=== PATIENT | female | born 1935 | race Two or more races ===

== ENCOUNTER 2021-05-16 12:25 | Inpatient (IN) | payer MEDICARE ==
[~2021-05-16] VITALS: Ht 167.6 cm; Wt 52.6 kg
--- NOTE | 2021-05-16 12:30 | NUR ---
PATIENT [id number] FOR AMS PER FACILITY. AAOX1. RECENT FALL PER EMS. BG 114. PATIENT AWAKE AND ABLE TO RESPOND AT TIMES. CONTINUE TO MONITOR AND AWAITING MD MATTHEWS
[2021-05-16] MEDS ORDERED: IV NS 0.9% 1,000 ML BAG IV ONE (13:00)
--- NOTE | 2021-05-16 13:13 | NUR ---
PATIENT OUT TO RADIOLOGY
[2021-05-16 13:16] LABS: BASOPHILS # (AUTO) 0.1 K/uL (0.0-0.2); BASOPHILS % (AUTO) 1.3 % (0.0-2.0); EOSINOPHILS % (AUTO) 0.4 % (0.0-6.0); HEMATOCRIT 38 % (33-45); HEMOGLOBIN 12.8 g/dL (11.5-14.8); LYMPHOCYTES # (AUTO) 1.7 K/uL (0.8-4.8); LYMPHOCYTES % (AUTO) 16.2 % (20.0-44.0); MEAN CORPUSCULAR HGB CONC 34 g/dl (31.0-36.0); MEAN CORPUSCULAR VOLUME 98 fL (82-100); MONOCYTES # (AUTO) 0.9 K/uL (0.1-1.30); MONOCYTES % (AUTO) 8.5 % (2.0-12.0); NEUTROPHILS # (AUTO) 7.5 K/uL (1.8-8.9); NEUTROPHILS % (AUTO) 73.6 % (43.0-81.0); PLATELET COUNT (AUTO) 498 K/uL (150-450); RED BLOOD CELL COUNT(AUTO) 3.89 MIL/uL (4.0-5.2); WHITE BLOOD COUNT (AUTO) 10.2 K/uL (4.3-11.0)
[2021-05-16 13:22] LABS: CALCIUM, SERUM 9.4 mg/dL (8.5-10.1); CARBON DIOXIDE 25 mmol/L (21-32); CHLORIDE 105 mmol/L (98-107); CREATININE 0.5 mg/dL (0.6-1.3); GLUCOSE 93 mg/dL (74-106); POTASSIUM 4.4 mmol/L (3.5-5.1); SODIUM SERUM 142 mmol/L (136-145); UREA NITROGEN, BLOOD 19 mg/dL (7-18)
[2021-05-16 13:28] LABS: ALANINE AMINOTRANSFERASE 18 U/L (12-78); ALBUMIN 3.5 g/dL (3.4-5.0); ALKALINE PHOSPHATASE 220 U/L (46-116); ASPARTATE AMINOTRANSFERASE 53 U/L (15-37); BILIRUBIN,DIRECT 0.1 mg/dL (0.0-0.2); BILIRUBIN,TOTAL 1.5 mg/dL (0.2-1.0); TOTAL PROTEIN, SERUM 7.8 g/dL (6.4-8.2)
--- NOTE | 2021-05-16 13:35 | NUR ---
CALLED NURSING SUP FOR M/S BED.
--- NOTE | 2021-05-16 14:07 | NUR ---
DAUGHTER CALLED, AND REQUEST TO HAVE STAFF CALL HER BACK WHEN PATIENT IS SITUATED. WILL ENDORSE TO MS INMAN
[2021-05-16 14:18] LABS: BILIRUBIN,URINE MODERATE (NEGATIVE); COLOR,URINE YELLOW (YELLOW); LEUKOCYTE ESTERASE ,URINE Negative (NEGATIVE); NITRITE, URINE Negative (NEGATIVE); PROTEIN,URINE 100 mg/dl (NEGATIVE); UGLUCOSE Negative (NEGATIVE)
--- NOTE | 2021-05-16 14:19 | NUR ---
COVID SWABS DONE
[2021-05-16 14:20] LABS: BACTERIA,URINE Few /HPF (None Seen); SQUAMOUS EPITHELIAL CELL,UR Few /HPF (None Seen); WBC,URINE 0-2 /HPF (0-3)
[2021-05-16 14:22] LABS: THYROID STIMULATING HORMONE 1.461 uIU/mL (0.358-3.74)
--- NOTE | 2021-05-16 15:20 | NUR ---
ROOM 117-2
--- NOTE | 2021-05-16 15:28 | NUR ---
REPORT GIVEN TO NURSE QUEEN
[2021-05-16] MEDS ORDERED: ONDANSETRON HCL/PF 4 MG/2 ML VIAL IVP PRN (15:30)
[2021-05-16] MEDS ORDERED: MAG HYDROX/AL HYDROX/SIMETH 30 ML UDC PO PRN (15:30)
[2021-05-16] MEDS ORDERED: TEMAZEPAM 15 MG CAPSULE PO PRN (15:30)
[2021-05-16] MEDS ORDERED: ACETAMINOPHEN 325 MG TABLET PO PRN (15:30)
[2021-05-16] MEDS ORDERED: Z GUARD REMEDY 2 OZ OINT TP PRN (15:30)
--- NOTE | 2021-05-16 16:15 | NUR ---
Patient transferred to [facility] in stable condition.
[2021-05-16 16:26] LABS: SERUM AMMONIA 1321 umol/L (11-32)
[2021-05-16 16:40] VITALS: BP 154/72
[2021-05-16 17:40] VITALS: BP 154/72
--- NOTE | 2021-05-16 17:41 | NUR ---
RECEIVED AWAKE NO ACUTE DISTRESS,FALL RISK PRECAUTION OBSERVED ,WILL ENDORSE TO NIGHT RN FOR COTINUITY OF CARE/ADMISSION.
--- NOTE | 2021-05-16 18:45 | NUR ---
RN CLOSING NOTES Pt is resting comfortably in bed with no s/sx of pain or distress. Pt was sleeping during dinner. Will endorse to next shift. Pt has a R FA 20gauge. Pt voided and had two bms on shift. Pt is a fall risk and safety measures in place with bed in lowest locked position, side rails up x3, bed alarm on and call light within reach.
[2021-05-16 20:00] VITALS: BP 156/80
--- NOTE | 2021-05-16 20:06 | NUR ---
RN NOTE PATIENT RESTING IN BED, ALERT AND ORIENTED X1. ON ROOM AIR, NO SHORTNESS OF BREATH NOTED. NO SIGNS OF DISCOMFORT. IV ACCESS ON RIGHT FOREARM #20, PATENT AND INTACT. FLUSHED WITH NS. BED LOCKED AND IN LOWEST POSITION. CALL LIGHT WITHIN REACH. ALL NEEDS ANTICIPATED.
[2021-05-17 04:00] VITALS: BP 122/75
[2021-05-17 06:36] LABS: BASOPHILS # (AUTO) 0.1 K/uL (0.0-0.2); BASOPHILS % (AUTO) 0.9 % (0.0-2.0); EOSINOPHILS % (AUTO) 0.9 % (0.0-6.0); HEMATOCRIT 37 % (33-45); HEMOGLOBIN 12.6 g/dL (11.5-14.8); LYMPHOCYTES # (AUTO) 1.4 K/uL (0.8-4.8); LYMPHOCYTES % (AUTO) 14.6 % (20.0-44.0); MEAN CORPUSCULAR HGB CONC 35 g/dl (31.0-36.0); MEAN CORPUSCULAR VOLUME 97 fL (82-100); MONOCYTES # (AUTO) 0.7 K/uL (0.1-1.30); MONOCYTES % (AUTO) 7.7 % (2.0-12.0); NEUTROPHILS # (AUTO) 7.3 K/uL (1.8-8.9); NEUTROPHILS % (AUTO) 75.9 % (43.0-81.0); PLATELET COUNT (AUTO) 471 K/uL (150-450); RED BLOOD CELL COUNT(AUTO) 3.76 MIL/uL (4.0-5.2); WHITE BLOOD COUNT (AUTO) 9.6 K/uL (4.3-11.0)
[2021-05-17 06:57] LABS: CHOLESTEROL 197 mg/dL (<200); HDL CHOLESTEROL 60 mg/dL (40-60); LDL 126 mg/dL (0-99); THYROID STIMULATING HORMONE 0.917 uIU/mL (0.358-3.74); TRIGLYCERIDES 55 mg/dL (30-150)
--- NOTE | 2021-05-17 07:20 | NUR ---
RN NOTES Received patient in bed resting. Easily arousable. Patient alert and oriented x1. Breathing even and unlabored. No shortness of breath noted upon receiving. Currently on room air. Patient noted with right forearm IV catheter 20 gauge. Will continue to monitor.
--- NOTE | 2021-05-17 07:24 | NUR ---
RN NOTE PATIENT ALERT AND ORIENTED X1. ON ROOM AIR O2 SAT 97%. NO SIGNS OF DISCOMFORT. IV ACCESS ON RIGHT FOREARM #20, PATENT AND INTACT. FLUSHED WITH NS. TURNED AND REPOSITIONED Q2H. KEPT CLEAN AND DRY. BED LOCKED AND IN LOWEST POSITION. CALL LIGHT WITHIN REACH. ENDORSED TO AM SHIFT.
[2021-05-17 07:34] LABS: CARBON DIOXIDE 28 mmol/L (21-32); CHLORIDE 106 mmol/L (98-107); CREATININE 0.6 mg/dL (0.6-1.3); GLUCOSE 78 mg/dL (74-106); POTASSIUM 3.4 mmol/L (3.5-5.1); SODIUM SERUM 144 mmol/L (136-145)
[2021-05-17 07:35] LABS: CALCIUM, SERUM 9.2 mg/dL (8.5-10.1); MAGNESIUM 2.2 mg/dL (1.8-2.4); PHOSPHORUS 3.1 mg/dL (2.5-4.9); UREA NITROGEN, BLOOD 17 mg/dL (7-18)
[2021-05-17 08:00] VITALS: BP 144/79
[2021-05-17] MEDS: PANTOPRAZOLE 40 MG TABLET.DR PO SCH (08:46)
[2021-05-17] MEDS ORDERED: ENAL10TA39 PO (08:57)
[2021-05-17] MEDS ORDERED: ANAS1TAB50 PO (08:57)
[2021-05-17] MEDS ORDERED: TRAM50TA2 PO (08:57)
[2021-05-17] MEDS ORDERED: DOCU-141 PO (08:57)
[2021-05-17] MEDS ORDERED: AMLO10TA4 PO (08:57)
[2021-05-17] MEDS ORDERED: CHOL200010 PO (08:57)
[2021-05-17] MEDS ORDERED: LISI10TA29 PO (08:57)
[2021-05-17] MEDS ORDERED: POTASSIUM CHLORIDE 20 MEQ TAB.PRT.SR PO ONE (10:30)
[2021-05-17] MEDS ORDERED: POTASSIUM CHLORIDE 20 MEQ POWDER PACKET PO ONE (11:00)
--- NOTE | 2021-05-17 11:00 | NUR ---
RN NOTES INSERTED PATIENT WITH NASOGASTRIC TUBE. PATENT. VERIFIED PLACEMENT WITH TWO LICENSED REGISTERED NURSES. NO ASPIRATION AND VOMITING NOTED. WILL CONTINUE TO MONITOR.
[2021-05-17] MEDS ORDERED: LACTULOSE 10 G/15 ML UDC (PYXIS) NG SCH (13:00)
[2021-05-17 16:00] VITALS: BP 160/91
[2021-05-17] MEDS: DOCUSATE SODIUM 100 MG CAPSULE PO SCH (16:47)
--- NOTE | 2021-05-17 18:00 | NUR ---
RN NOTES NO SIGNIFICANT CHANGES DURING SHIFT. PATIENT ALERT AND ORIENTED X1. CURRENTLY ON ROOM AIR. PATIENT WITH RESTRAINTS SECONDARY TO PULLING OUT NG TUBE AND TRYING TO GET OUT OF BED. PATIENT WITH NASOGASTRIC TUBE, PATENT. REPOSITIONED EVERY 2 HOURS AND NEEDED. WILL ENDORSE TO NEXT SHIFT FOR CONTINUITY OF CARE.
--- NOTE | 2021-05-17 19:30 | NUR ---
RN NOTES Received patient in bed resting, alert and oriented x1. Responsive to verbal and tactile stimuli. On RA, Breathing even and unlabored. No SOB noted. Right forearm IV 20 gauge intact no s/s of bleeding no swelling noted. RT Nare NG tube intact. All safety measures in place, call light within reach. Will cont to monitor for tristan.
[2021-05-17 20:00] VITALS: BP 158/98
[2021-05-18 04:00] VITALS: BP 144/71
--- NOTE | 2021-05-18 06:58 | NUR ---
RN notes No significant changes noted during shift. On RA. Patient continues on bilateral soft wrist restrains secondary to pulling NGT and getting out of bed. Release restrains [id number] for skin assessment no skin breakdown noted. All safety measures in place, call light within reach. Will endorse to AM nurse for ROBERT.
[2021-05-18 06:59] LABS: BASOPHILS # (AUTO) 0.1 K/uL (0.0-0.2); BASOPHILS % (AUTO) 0.6 % (0.0-2.0); EOSINOPHILS % (AUTO) 0.3 % (0.0-6.0); HEMATOCRIT 37 % (33-45); HEMOGLOBIN 12.7 g/dL (11.5-14.8); LYMPHOCYTES # (AUTO) 1.2 K/uL (0.8-4.8); LYMPHOCYTES % (AUTO) 11.4 % (20.0-44.0); MEAN CORPUSCULAR HGB CONC 35 g/dl (31.0-36.0); MEAN CORPUSCULAR VOLUME 97 fL (82-100); MONOCYTES # (AUTO) 0.9 K/uL (0.1-1.30); NEUTROPHILS # (AUTO) 8.3 K/uL (1.8-8.9); NEUTROPHILS % (AUTO) 78.7 % (43.0-81.0); PLATELET COUNT (AUTO) 459 K/uL (150-450); RED BLOOD CELL COUNT(AUTO) 3.75 MIL/uL (4.0-5.2); WHITE BLOOD COUNT (AUTO) 10.5 K/uL (4.3-11.0)
[2021-05-18 07:29] LABS: CALCIUM, SERUM 8.7 mg/dL (8.5-10.1); CARBON DIOXIDE 27 mmol/L (21-32); CHLORIDE 106 mmol/L (98-107); CREATININE 0.6 mg/dL (0.6-1.3); GLUCOSE 91 mg/dL (74-106); POTASSIUM 2.9 mmol/L (3.5-5.1); SODIUM SERUM 143 mmol/L (136-145); UREA NITROGEN, BLOOD 19 mg/dL (7-18)
--- NOTE | 2021-05-18 07:30 | NUR ---
RN OPENING NOTES Patient is alert and responsive. Patient noted with her NGT out during shift report. bilateral wrist restraints noted. No c/o pain or discomfort. Right wrist iv line dislodged and not patent. HOB kept elevated. Will continue to monitor. Call light with in reach.
[2021-05-18 08:00] VITALS: BP 134/77
[2021-05-18 08:01] LABS: SERUM AMMONIA < 10 umol/L (11-32)
[2021-05-18] MEDS: CHOLECALCIFEROL 1,000 UNIT TABLET (VIT D3) PO SCH (08:36)
[2021-05-18] MEDS: PANTOPRAZOLE 40 MG TABLET.DR PO SCH (08:36)
[2021-05-18] MEDS: LISINOPRIL (10MG) 10 MG TABLET PO SCH (08:36)
[2021-05-18] MEDS: ENALAPRIL MALEATE (10 MG) 10 MG TABLET PO SCH (08:36)
[2021-05-18] MEDS: AMLODIPINE BESYLATE 10 MG TABLET PO SCH (08:36)
[2021-05-18] MEDS: DOCUSATE SODIUM 100 MG CAPSULE PO SCH ×2 (08:37→17:00)
[2021-05-18] MEDS: ANASTROZOLE 1 MG TABLET PO SCH (08:37)
--- NOTE | 2021-05-18 09:00 | NUR ---
K+ level of 2.9 informed MD Abdiel and awaiting response. Patient is asymptomatic.
--- NOTE | 2021-05-18 09:50 | NUR ---
Received verbal order from OB GYN PHYSICIAN ASSISTANT Abdiel for Klor con 40 meq q4h x 3 doses for total of 120 meq and PT EVAL, SWALLOW EVAL AND CALORIE COUNT.
[2021-05-18] MEDS ORDERED: POTASSIUM CHLORIDE 20 MEQ TAB.PRT.SR PO ONE (10:00)
[2021-05-18] MEDS: POTASSIUM CHLORIDE 20 MEQ POWDER PACKET PO SCH ×3 (10:26→18:08)
--- NOTE | 2021-05-18 10:30 | NUR ---
Patient given her first dose of klor con po
[2021-05-18] MEDS: ENSURE ENLIVE CHOC 237 ML CAN PO SCH ×2 (12:30→18:09)
[2021-05-18 16:00] VITALS: BP 139/80
[2021-05-18] MEDS ORDERED: IV LR 1000 ML 1,000 ML IV ONE (18:30)
--- NOTE | 2021-05-18 19:30 | NUR ---
RN NOTE RECEIVED PATIENT IN BED. A/OX1. TOLERATING ROOM AIR. RESPIRATIONS ARE EVEN AND UNLABORED. NO S/S SOB NOTED. NO S/S PAIN NOTED. IN NO APPARENT DISTRESS. IV ACCESS IN LFA#22 RUNNING LR@60ML/HR. BILATERAL SOFT WRIST RESTRAINTS PRESENT, NO REDNESS, GOOD CAP REFILL. BED IS LOW AND LOCKED, HOB ELEVATED IN SEMI FOWLERS, SIDE RAILS UP X3, CALL LIGHT WITHIN REACH. WILL CONTINUE TO MONITOR THROUGHOUT SHIFT.
--- NOTE | 2021-05-18 19:35 | NUR ---
RN CLOSING NOTES Patient is alert and responsive. No c/o pain or discomfort. left forearm iv line patent and running LR . Patient had lbm x 6 during shift. K+ replaced. Swallow eval done and patient passed. On room air with 02 saturation of 98%.HOB kept elevated. Will continue to monitor. Call light with in reach.Endorsed to next shift for ROBERT.
[2021-05-18 20:00] VITALS: BP 141/81
[2021-05-19] VITALS: BP 150/84
[2021-05-19 04:00] VITALS: BP 156/89
--- NOTE | 2021-05-19 06:22 | NUR ---
SEWING MACHINE MECHANIC NOTE PATIENT TRANSFERRED FROM ROOM 117-2 TO ROOM 311-1. ALL BELONGINGS AND MEDICATIONS FROM CASSETTE TAKEN WITH PATIENT. МАРИНА RN RECEIVED REPORT FOR PATIENT. PATIENT IS RESTING IN BED. A/OX1. REMAINS TOLERATING ROOM AIR. NO RESP DISTRESS. NO C/O PAIN. NO DISTRESS. IV ACCESS MAINTAINED IN LFA#22 RUNNING LR@60ML/HR. ANF RFA#20. BILATERAL SOFT WRIST RESTRAINTS MAINTAINED. BED REMAINS LOW AND LOCKED, SIDE RAILS UP X3.
--- NOTE | 2021-05-19 06:22 | NUR ---
TECHNICIAN TERMINAL AND REPEATER NOTE RECEIVED PATIENT IN BED FROM ROOM 117-2 TO ROOM 311-1. A/OX1. REMAINS TOLERATING ROOM AIR. NO RESP DISTRESS. IV ACCESS IN LFA#22 RUNNING LR@60ML/HR. AND RFA#20. BILATERAL SOFT WRIST RESTRAINTS MAINTAINED. SAFETY PRECAUTIONS IN PLACE: BED IN LOWEST, LOCKED POSITION, SIDE RAILS UP X3, BRAKES ON. CALL LIGHT AND TABLE WITHIN REACH. WILL CONTINUE TO MONITOR.
--- NOTE | 2021-05-19 06:58 | NUR ---
MS RN CLOSING NOTES PATIENT IN BED RESTING, EASY TO AWAKEN VIA VERBAL STIMULI. A/OX1. ON ROOM AIR AND TOLERATING WELL. NO RESP DISTRESS OR SOB NOTED. IV ACCESS IN LFA#22 RUNNING LR@60ML/HR. AND RFA#20. BILATERAL SOFT WRIST RESTRAINTS MAINTAINED. ALL NEEDS MET. PT KEPT CLEAN AND DRY. SAFETY PRECAUTIONS IN PLACE: BED IN LOWEST, LOCKED POSITION, SIDE RAILS UP X3, BRAKES ON. CALL LIGHT AND TABLE WITHIN REACH. WILL ENDORSE TO ONCOMING SHIFT.
[2021-05-19 07:17] LABS: BASOPHILS # (AUTO) 0.1 K/uL (0.0-0.2); BASOPHILS % (AUTO) 0.7 % (0.0-2.0); EOSINOPHILS % (AUTO) 1.6 % (0.0-6.0); HEMATOCRIT 36 % (33-45); HEMOGLOBIN 12.7 g/dL (11.5-14.8); LYMPHOCYTES # (AUTO) 1.4 K/uL (0.8-4.8); LYMPHOCYTES % (AUTO) 18.1 % (20.0-44.0); MEAN CORPUSCULAR HGB CONC 35 g/dl (31.0-36.0); MEAN CORPUSCULAR VOLUME 97 fL (82-100); MONOCYTES # (AUTO) 0.8 K/uL (0.1-1.30); MONOCYTES % (AUTO) 9.8 % (2.0-12.0); NEUTROPHILS # (AUTO) 5.5 K/uL (1.8-8.9); NEUTROPHILS % (AUTO) 69.8 % (43.0-81.0); PLATELET COUNT (AUTO) 439 K/uL (150-450); RED BLOOD CELL COUNT(AUTO) 3.75 MIL/uL (4.0-5.2); WHITE BLOOD COUNT (AUTO) 7.9 K/uL (4.3-11.0)
[2021-05-19 07:21] LABS: SERUM AMMONIA < 10 umol/L (11-32)
[2021-05-19 07:29] LABS: CARBON DIOXIDE 30 mmol/L (21-32); CHLORIDE 108 mmol/L (98-107); CREATININE 0.6 mg/dL (0.6-1.3); GLUCOSE 95 mg/dL (74-106); POTASSIUM 4.1 mmol/L (3.5-5.1); SODIUM SERUM 142 mmol/L (136-145); UREA NITROGEN, BLOOD 16 mg/dL (7-18)
[2021-05-19] MEDS: PANTOPRAZOLE 40 MG TABLET.DR PO SCH (07:30)
--- NOTE | 2021-05-19 07:55 | NUR ---
MS RN OPENING NOTES RECEIVED PATIENT IN BED, ASLEEP, AWAKEN EASILY. PATIENT ON ROOM AIR; BREATHING EVEN AND UNLABORED AT THIS TIME; NO S/S OF DISTRESS. NO S/S OF PAIN SUCH FACIAL GRIMACING, MOANING OR GUARDING. IV ACCESS ON RFA G # 20 AND LFA G # 22 PRESENT AND INTACT. PATIENT ON BILATERAL SOFT WRIST RESTRAINS. SAFETY PRECAUTIONS IN PLACE; BED IN LOW POSITION AND LOCKED, RAILS UP X2, CALL LIGHT WITHIN REACH. WILL CONTINUE TO MONITOR PATIENT.
[2021-05-19 08:00] VITALS: BP 145/94
[2021-05-19] MEDS: ENSURE ENLIVE CHOC 237 ML CAN PO SCH ×3 (08:00→17:13)
[2021-05-19] MEDS: CHOLECALCIFEROL 1,000 UNIT TABLET (VIT D3) PO SCH (09:00)
[2021-05-19] MEDS: ANASTROZOLE 1 MG TABLET PO SCH (09:00)
[2021-05-19] MEDS: DOCUSATE SODIUM 100 MG CAPSULE PO SCH ×2 (09:00→16:15)
[2021-05-19] MEDS: AMLODIPINE BESYLATE 10 MG TABLET PO SCH (09:00)
[2021-05-19] MEDS: ENALAPRIL MALEATE (10 MG) 10 MG TABLET PO SCH (09:00)
[2021-05-19] MEDS: LISINOPRIL (10MG) 10 MG TABLET PO SCH (09:00)
--- NOTE | 2021-05-19 09:19 | NUR ---
MS RN NOTES PATIENT WAS INFORMED SHE WILL BE RECEIVING HER AM MEDICATIONS. PATIENT SAID OK. WHEN ASKED IF SHE WANTS THEM CRUSHED, PATIENT SAID YES. MEDS CRUSHED. PATIENT TOOK 2 SPOONS AND SAID SHE DOES NOT WANT MEDICATIONS ANYMORE. "NO FOOD, NO MEDS".
[2021-05-19 16:06] VITALS: BP 144/92
--- NOTE | 2021-05-19 19:19 | NUR ---
MS RN CLOSING NOTES: PATIENT REMAINS IN BED, ASLEEP, AWAKEN EASILY. PATIENT ON ROOM AIR; BREATHING EVEN AND UNLABORED AT THIS TIME; NO S/S OF DISTRESS. NO S/S OF PAIN SUCH FACIAL GRIMACING, MOANING OR GUARDING. IV ACCESS ON RFA G # 20 AND LFA G # 22 PRESENT AND INTACT. PATIENT REMAINS ON BILATERAL SOFT WRIST RESTRAINS. ALL NEEDS ATTENDED DURING THE DAY. SAFETY PRECAUTIONS IN PLACE; BED IN LOW POSITION AND LOCKED, RAILS UP X2, CALL LIGHT WITHIN REACH. WILL ENDORSE TO FRONT OFFICE JAVA DEVELOPER NURSE.
--- NOTE | 2021-05-19 19:30 | NUR ---
RN OPENING NOTE PATIENT IN BED, AWAKE. PATIENT IS A/O X 1 AT THIS TIME. ABLE TO MAKE NEEDS KNOWN WHEN ASKED. PATIENT CURRENTLY HAS MARLYS SOFT WRIST RESTRAINTS ON. PATIENT IS ON RA, BREATHING EVEN AND UNLABORED. RFA 20 G PATENT AND INTACT. NO REPORTS OF PAIN AT THIS TIME. SAFETY MEASURES IN PLACE: BED LOCKED AND IN LOWEST POSITION, CALL LIGHT WITHIN REACH, SIDE RAILS UP. WILL CONTINUE Q2H CHECK AND MONITOR PATIENT CLOSELY.
[2021-05-19 20:00] VITALS: BP 133/90
[2021-05-20 06:42] LABS: CALCIUM, SERUM 9.3 mg/dL (8.5-10.1); CREATININE 0.7 mg/dL (0.6-1.3); POTASSIUM 3.7 mmol/L (3.5-5.1)
--- NOTE | 2021-05-20 06:51 | NUR ---
RN CLOSING NOTE PATIENT IN BED, AWAKE. PATIENT IS A/O X 1 AT THIS TIME. PATIENT STILL HAS MARLYS SOFT WRIST RESTRAINTS ON, CAN BE HOSTILE/COMBATIVE AND UNCOOPERATIVE WITH CARE. PATIENT IS ON RA, BREATHING EVEN AND UNLABORED. RFA 20 G PATENT AND INTACT. NO REPORTS OF PAIN AT THIS TIME. SAFETY MEASURES IN PLACE: BED LOCKED AND IN LOWEST POSITION, CALL LIGHT WITHIN REACH, SIDE RAILS UP. Q2H CHECKS COMPLETED. WILL ENDORSE TO DAY SHIFT NURSE FOR ROBERT.
--- NOTE | 2021-05-20 07:20 | NUR ---
RN OPENING NOTE RECEIVED PATIENT IN BED. A/O X1. WITH BILATERAL SOFT RESTRAINTS ON THE WRISTS. ON ROOM AIR, NO SOB NOTED. IN NO APPARENT DISTRESS. IV ACCESS ON R FA #20 G, INTACT AND PATENT. SAFETY MEASURES MAINTAINED. BED IN LOWEST POSITION, BRAKES LOCKED. SIDE RAILS UP X2. CALL LIGHT WITHIN REACH. WILL CONTINUE PLAN OF CARE.
[2021-05-20 08:30] VITALS: BP 161/65
[2021-05-20] MEDS: ANASTROZOLE 1 MG TABLET PO SCH (08:39)
[2021-05-20] MEDS: ENALAPRIL MALEATE (10 MG) 10 MG TABLET PO SCH (08:39)
[2021-05-20] MEDS: CHOLECALCIFEROL 1,000 UNIT TABLET (VIT D3) PO SCH (08:39)
[2021-05-20] MEDS: ENSURE ENLIVE CHOC 237 ML CAN PO SCH ×3 (08:40→17:00)
[2021-05-20] MEDS: PANTOPRAZOLE 40 MG TABLET.DR PO SCH (08:40)
[2021-05-20] MEDS: AMLODIPINE BESYLATE 10 MG TABLET PO SCH (08:41)
[2021-05-20] MEDS: DOCUSATE SODIUM 100 MG CAPSULE PO SCH ×2 (08:41→16:59)
[2021-05-20] MEDS: LISINOPRIL (10MG) 10 MG TABLET PO SCH (08:41)
[2021-05-20 16:27] VITALS: BP 164/56
[2021-05-20] MEDS: TRAMADOL HCL 50 MG TABLET PO PRN ×2 (17:00→18:03)
--- NOTE | 2021-05-20 18:05 | NUR ---
RN OPENING NOTE RECEIVED PATIENT IN BED. A/O X1. WITH BILATERAL SOFT RESTRAINTS ON THE WRISTS. ON ROOM AIR, NO SOB NOTED. NO S/S OF RESPIRATORY DISTRESS. IV ACCESS ON R FA #20 G, INTACT AND PATENT. NO SIGNS OF INFILTRATION. DUE MEDS GIVEN ORDERED. SAFETY MEASURES MAINTAINED. BED IN LOWEST POSITION, BRAKES LOCKED. SIDE RAILS UP X2. KEPT CALL LIGHT WITHIN REACH. WILL ENDORSE CONTINUITY OF CARE TO ONCOMING SHIFT. Addendum: 05/20/21 at 1808 by EMILY BAUM RN UPDATED* RN CLOSING NOTE PATIENT RESTING IN BED. A/O X1. WITH BILATERAL SOFT RESTRAINTS ON THE WRISTS. ON ROOM AIR, NO SOB NOTED. NO S/S OF RESPIRATORY DISTRESS. IV ACCESS ON R FA #20 G, INTACT AND PATENT. NO SIGNS OF INFILTRATION. DUE MEDS GIVEN ORDERED. SAFETY MEASURES MAINTAINED. BED IN LOWEST POSITION, BRAKES LOCKED. SIDE RAILS UP X2. KEPT CALL LIGHT WITHIN REACH. WILL ENDORSE CONTINUITY OF CARE TO ONCOMING SHIFT.
--- NOTE | 2021-05-20 19:53 | NUR ---
MS RN OPENING RECEIVED PATIENT IN BED, AWAKE BUT SEEMS CONFUSED, ASKED QUESTIONS BUT NO ANSWERS. NO S/S OF APPARENT DISTRESS IN ROOM AIR. NOT EXHIBITING PAIN VIA FLACC. PATIENT HAS NO FLUIDS RUNNING AT THIS TIME. SAFETY IN PLACE. WILL CONTINUE TO MONITOR.
[2021-05-20 20:00] VITALS: BP 129/80
--- NOTE | 2021-05-21 06:53 | NUR ---
ms rn closing patient in bed with eyes closed, easy to arouse. confused. patient has no apparent distress, tolerating room air. not exhibiting pain at this time via flacc. no fluids running at this time. soft-bilateral wrist restraints in place and renewed. all needs attended, all sched meds administered. safety in place. will endorse care to morning shift rn for continuation of care
[2021-05-21 07:34] LABS: CALCIUM, SERUM 9.3 mg/dL (8.5-10.1); CREATININE 0.6 mg/dL (0.6-1.3); POTASSIUM 3.4 mmol/L (3.5-5.1)
--- NOTE | 2021-05-21 07:57 | NUR ---
MS/RN OPENING NOTE RECEIVED PATIENT IN BED. A/O X1. WITH BILATERAL SOFT RESTRAINTS ON THE WRISTS. ON ROOM AIR, NO SOB NOTED. IN NO APPARENT DISTRESS. IV ACCESS ON R FA #20 G, INTACT AND PATENT ON SALINE LOCK. SAFETY MEASURES MAINTAINED. BED IN LOWEST POSITION, BRAKES LOCKED. SIDE RAILS UP X2. CALL LIGHT WITHIN REACH. WILL CONTINUE PLAN OF CARE.
[2021-05-21 08:00] VITALS: BP 134/98
[2021-05-21] MEDS: ENSURE ENLIVE CHOC 237 ML CAN PO SCH ×3 (08:00→17:10)
[2021-05-21] MEDS ORDERED: POTASSIUM CHLORIDE 20 MEQ TAB.PRT.SR PO SCH (08:30)
[2021-05-21] MEDS ORDERED: POTASSIUM CHLORIDE 20 MEQ POWDER PACKET PO ONE (09:00)
[2021-05-21] MEDS: PANTOPRAZOLE 40 MG TABLET.DR PO SCH (09:05)
[2021-05-21] MEDS: CHOLECALCIFEROL 1,000 UNIT TABLET (VIT D3) PO SCH (09:14)
[2021-05-21] MEDS: ANASTROZOLE 1 MG TABLET PO SCH (09:14)
[2021-05-21] MEDS: LISINOPRIL (10MG) 10 MG TABLET PO SCH (09:14)
[2021-05-21] MEDS: AMLODIPINE BESYLATE 10 MG TABLET PO SCH (09:15)
[2021-05-21] MEDS: ENALAPRIL MALEATE (10 MG) 10 MG TABLET PO SCH (09:15)
[2021-05-21] MEDS: DOCUSATE SODIUM LIQ 100 MG/10 ML UDC PO SCH ×2 (09:58→17:10)
[2021-05-21] MEDS: HYDROCODONE/APAP 5/325MG TABLET PO PRN ×2 (09:58→17:33)
[2021-05-21] MEDS: TRAMADOL HCL 50 MG TABLET PO PRN (14:45)
[2021-05-21 16:00] VITALS: BP 114/62
--- NOTE | 2021-05-21 18:57 | NUR ---
MS/RN CLOSING NOTE PATIENT IN BED. ASLEEP BUT EASILY AROUSABLE, A/O X1. WITH BILATERAL SOFT RESTRAINTS ON THE WRISTS. ON ROOM AIR, NO SOB NOTED. IN NO APPARENT DISTRESS. IV ACCESS ON R FA #20 G, INTACT AND PATENT ON SALINE LOCK. ALL NEEDS ARE MET. SAFETY MEASURES MAINTAINED. BED IN LOWEST POSITION, BRAKES LOCKED. SIDE RAILS UP X2. CALL LIGHT WITHIN REACH. WILL ENDORSE TO THE NEXT SHIFT TO CONTINUE PLAN OF CARE.
--- NOTE | 2021-05-21 19:45 | NUR ---
MSRN ASLEEP APPEARS COMFORTABLE. TO CONTINUE
[2021-05-21 20:00] VITALS: BP 160/94
--- NOTE | 2021-05-21 20:00 | NUR ---
MSRN TOTALLY BATHED, REPOSITIONED PER PATIENTS' COMFORT. BILATERAL SOFT WRIST RESTRAINTS HFR, TRYING TO GET OUT OF BED. ALL NEEDS MADE. REMAINS NONVERBAL UNABLE TO FOLLOW SIMPLE COMMANDS.
[2021-05-22] MEDS: HYDROCODONE/APAP 5/325MG TABLET PO PRN ×3 (02:07→18:17)
--- NOTE | 2021-05-22 05:37 | NUR ---
MSRN MEDICATED EARLIER WITH 1 TAB NORCO CRUSHED GIVEN WITH PUDDING. FOR RIGHT SHOULDER PAIN. NEEDS ENCOURAGEMENT AND MOTIVATION TO TAKE MEDS. TAKES AWHILE TO SWALLOW. CAN BE COMBATIVE AT TIMES.REPOSITIONED FOR COMFORT.
--- NOTE | 2021-05-22 07:58 | NUR ---
MS/RN OPENING NOTE RECEIVED PATIENT IN BED. A/O X1. WITH BILATERAL SOFT RESTRAINTS ON THE WRISTS. ON ROOM AIR, NO SOB NOTED. IN NO APPARENT DISTRESS. IV ACCESS ON R FA #20 G, INTACT AND PATENT ON SALINE LOCK. SAFETY MEASURES MAINTAINED. BED IN LOWEST POSITION, BRAKES LOCKED. SIDE RAILS UP X2. CALL LIGHT WITHIN REACH. WILL CONTINUE WITH THE PLAN OF CARE.
[2021-05-22 08:00] VITALS: BP 139/89
[2021-05-22 08:06] LABS: CALCIUM, SERUM 9.3 mg/dL (8.5-10.1); CREATININE 0.6 mg/dL (0.6-1.3); POTASSIUM 4.3 mmol/L (3.5-5.1)
[2021-05-22] MEDS: PANTOPRAZOLE 40 MG TABLET.DR PO SCH (08:27)
[2021-05-22] MEDS: ENSURE ENLIVE CHOC 237 ML CAN PO SCH ×3 (08:29→17:35)
[2021-05-22] MEDS: CHOLECALCIFEROL 1,000 UNIT TABLET (VIT D3) PO SCH (09:43)
[2021-05-22] MEDS: DOCUSATE SODIUM LIQ 100 MG/10 ML UDC PO SCH ×2 (09:43→17:35)
[2021-05-22] MEDS: AMLODIPINE BESYLATE 10 MG TABLET PO SCH (09:44)
[2021-05-22] MEDS: ENALAPRIL MALEATE (10 MG) 10 MG TABLET PO SCH (09:44)
[2021-05-22] MEDS: ANASTROZOLE 1 MG TABLET PO SCH (09:44)
[2021-05-22] MEDS: LISINOPRIL (10MG) 10 MG TABLET PO SCH (09:45)
[2021-05-22] MEDS ORDERED: IV NS 0.9% 1,000 ML IV ONE (11:30)
[2021-05-22 16:00] VITALS: BP 177/91
--- NOTE | 2021-05-22 18:30 | NUR ---
MS/NAPPER TENDER NOTES PATIENT IN BED, ALERT AND ORIENTED X1. BEDBOUND. STABLE ON ROOM AIR. PATIENT IS MEDICALLY STABLE AND JASBIR HATHAWAY NP ORDERED DISCHARGE BACK TO BE WELL BOARD AND CARE. DISCHARGE INSTRUCTIONS CALLED IN TO THE FACILITY, ALL BELONGINGS ACCOUNTED FOR. IV ACCESS DISCONTINUED. PATIENT WAS PICKED UP BY THE EMT FOR TRANSPORT.
== END 2021-05-22 18:40 | disposition hospice, home (50) | DRG 640 ==
LOC: ER 12:34 → MEDSG1 15:31 → MED 05-19 06:07
PROVIDERS: ADMIT Nurse Practitioner Acute Care; ATTEND Nurse Practitioner Family
DX: E86.0 Dehydration (principal); G93.41 Metabolic encephalopathy; E43 Unspecified severe protein-calorie malnutrition; S42.211A Unspecified displaced fracture of surgical neck of right humerus, initial encounter for closed fracture; R64 Cachexia; Z68.1 Body mass index [BMI] 19.9 or less, adult; G30.9 Alzheimer's disease, unspecified; F02.80 Dementia in other diseases classified elsewhere, unspecified severity, without behavioral disturbance, psychotic disturbance, mood disturbance, and anxiety; E87.6 Hypokalemia; R62.7 Adult failure to thrive; Z86.73 Personal history of transient ischemic attack (TIA), and cerebral infarction without residual deficits; F01.50 Vascular dementia, unspecified severity, without behavioral disturbance, psychotic disturbance, mood disturbance, and anxiety; I10 Essential (primary) hypertension; R74.8 Abnormal levels of other serum enzymes; W19.XXXA Unspecified fall, initial encounter; Y93.9 Activity, unspecified; Y92.89 Other specified places as the place of occurrence of the external cause; Z20.822 Contact with and (suspected) exposure to COVID-19
CPT/HCPCS: 36415; 70450-TC; 71045-TC; 73030-TC; 80048-TC; 80061-TC; 80076-TC; 81001; 82140-TC; 82962-TC; 83735-TC; 84100-TC; 84443-TC; 84484-TC; 85025-TC; 85730-TC; 87081-TC; 92526; 92611-TC; 97112-TC; 97530-TC; C9803; G0378; J3490; J7030; J7120; U0003

== ENCOUNTER 2023-01-06 11:47 | Inpatient (IN) | payer MEDICARE ==
[~2023-01-06] VITALS: Ht 165.1 cm; Wt 63.5 kg
[~2023-01-06 11:47] MED LIST: AMLO10TA4 PO; ANAS1TAB50 PO; CHOL200010 PO; DOCU-141 PO; ENAL10TA39 PO; LISI10TA29 PO; TRAM50TA2 PO
--- NOTE | 2023-01-06 11:58 | NUR ---
COMING FROM A 6 PACK; ADDRESS IS [facility] [place], ZIP CODE [id number] PER EMS
[2023-01-06] MEDS ORDERED: IV NS 0.9% 500 ML BAG IV ONE (12:00)
--- NOTE | 2023-01-06 12:07 | NUR ---
PT FROM [facility], NUMBER: [phone]
[2023-01-06 12:58] LABS: BASOPHILS % (AUTO) 0.6 % (0.0-2.0); EOSINOPHILS % (AUTO) 0.1 % (0.0-6.0); HEMATOCRIT 41 % (33-45); HEMOGLOBIN 13.9 g/dL (11.5-14.8); LYMPHOCYTES # (AUTO) 0.5 K/uL (0.8-4.8); MEAN CORPUSCULAR HGB CONC 34 g/dl (31.0-36.0); MEAN CORPUSCULAR VOLUME 97 fL (82-100); MONOCYTES # (AUTO) 0.2 K/uL (0.1-1.30); MONOCYTES % (AUTO) 4.1 % (2.0-12.0); NEUTROPHILS # (AUTO) 4.8 K/uL (1.8-8.9); NEUTROPHILS % (AUTO) 86.2 % (43.0-81.0); PLATELET COUNT (AUTO) 360 K/uL (150-450); RED BLOOD CELL COUNT(AUTO) 4.28 MIL/uL (4.0-5.2); WHITE BLOOD COUNT (AUTO) 5.6 K/uL (4.3-11.0)
--- NOTE | 2023-01-06 13:12 | NUR ---
talked to her daugther mentioned she had hgic stroke 1yr ago. this morning she had episodes of vomiting and body weakness with elevated BP. SHE MENTIONED PT IS DNR.
[2023-01-06 13:40] LABS: ALANINE AMINOTRANSFERASE 21 U/L (12-78); ALBUMIN 3.7 g/dL (3.4-5.0); ALKALINE PHOSPHATASE 83 U/L (46-116); ASPARTATE AMINOTRANSFERASE 19 U/L (15-37); BILIRUBIN,DIRECT 0.1 mg/dL (0.0-0.2); BILIRUBIN,TOTAL 0.8 mg/dL (0.2-1.0); CALCIUM, SERUM 9.2 mg/dL (8.5-10.1); CARBON DIOXIDE 32 mmol/L (21-32); CHLORIDE 101 mmol/L (98-107); CREATININE 0.8 mg/dL (0.6-1.3); GLUCOSE 134 mg/dL (74-106); POTASSIUM 3.3 mmol/L (3.5-5.1); SODIUM SERUM 139 mmol/L (136-145); TOTAL PROTEIN, SERUM 7.3 g/dL (6.4-8.2); UREA NITROGEN, BLOOD 11 mg/dL (7-18)
--- NOTE | 2023-01-06 13:42 | NUR ---
COVID SWAB DONE SENT TO LAB
[2023-01-06] MEDS ORDERED: ACETAMINOPHEN 325 MG TABLET PO PRN (14:00)
[2023-01-06] MEDS ORDERED: ONDANSETRON HCL/PF 4 MG/2 ML VIAL IVP PRN (14:00)
--- NOTE | 2023-01-06 14:00 | NUR ---
called nursing sup regarding pt bed
[2023-01-06] MEDS ORDERED: CLONIDINE HCL 0.1 MG TABLET ONE (15:50)
[2023-01-06] MEDS ORDERED: hydrALAZINE HCL IV 20 MG VIAL IV PRN (16:00)
[2023-01-06] MEDS ORDERED: CLONIDINE HCL 0.1 MG TABLET PO ONE (16:00)
--- NOTE | 2023-01-06 16:00 | NUR ---
pt bp is 174/87, md made aware , gave order for catapres . pt refused mdication
--- NOTE | 2023-01-06 16:33 | NUR ---
ROOM 116-2
--- NOTE | 2023-01-06 17:06 | NUR ---
PT ENDORSED AND GAVE REPORT TO HENNY KENDALL FOR CONTINUATION OF CARE
--- NOTE | 2023-01-06 17:11 | NUR ---
PT TRANSPORTED WITH ACLS PROTOCOLS IN PLACE
[2023-01-06] MEDS: POTASSIUM CL. PREMIX PERIPHER. 50 ML IV SCH ×2 (18:38→19:36)
--- NOTE | 2023-01-06 19:00 | NUR ---
RN CLOSING NOTE RECEIVED PATIENT FROM ER IN [facility], PATIENT ON ROOM AIR, ALERT AND ORIENTED X2, NO PAIN OR SIGNS OF DISCOMFORT NOTED, HEAD OF THE BED ELEVATED, SAFETY MEASURES IN PLACE, IV ACCESS ON HAND LAMONTE 22 PATENT AND FLUSHING WELL. BED IN LOWEST AND LOCKED POSITION, SIDE RAILS UP X2, CALL LIGHT WITHIN REACH. WILL ENDORSE TO PLASTIC MACHINE OPERATOR FOR ROBERT
[2023-01-06 19:03] VITALS: BP 182/74
--- NOTE | 2023-01-06 19:40 | NUR ---
RN OPENING NOTES: RECEIVED PATIENT IN BED, SLEEPING BUT AROUSABLE, A/O X1, RESPONSIVE TO PAINFUL STIMULI. ON ROOM AIR AND PT TOLERATED WELL. IV ACCESS ON RT HAND #22G INTACT AND PATENT. NO S/S OF INFILTRATIONS. NO FACIAL GRIMACING NOTED. NO ACUTE DISTRESS. ALL SAFETY MEASURES IN PLACE, BED IN LOWEST POSITION AND LOCKED. SIDE RAILS UP X2, PLACE CALL LIGHT WITHIN REACH. WILL CONTINUE TO MONITOR
[2023-01-06 20:00] VITALS: BP 131/75
[2023-01-06] MEDS: IV NS 0.9% 1,000 ML IV PRN (20:28)
--- NOTE | 2023-01-06 21:50 | NUR ---
RN NOTES: MADE A PHONE CALL, AND TALKED TO LALY, THE RIGGING AND CONTROLS AIRCRAFT MECHANIC OF THE FACILITY. MENTIONED SHE WILL FAX THE [facility].
[2023-01-07] VITALS: BP 145/84
[2023-01-07 04:00] VITALS: BP 137/63
--- NOTE | 2023-01-07 06:36 | NUR ---
RN CLOSING NOTES: PATIENT IN BED, SLEEPING BUT AROUSABLE, A/O X1, WITH CONFUSION, NOTED ON AND OFF AGITATION AND RESTLESSNESS WHILE GIVING CARE. VERBALLY RESPONSIVE. ON ROOM AIR AND PT TOLERATED WELL. O2 SAT 97%. IV ACCESS ON RT HAND #22G INTACT AND PATENT. NO S/S OF INFILTRATIONS. RUNNING NS AT 75CC/HR. NO FACIAL GRIMACING NOTED. NO ACUTE DISTRESS. NO SIGNIFICANT CHAGES NOTED DURING THIS SHIFT. ALL SAFETY MEASURES IN PLACE, BED IN LOWEST POSITION AND LOCKED. SIDE RAILS UP X2, PLACE CALL LIGHT WITHIN REACH. WILL ENDORSE TO MORNING SHIFT NURSE.
[2023-01-07 07:01] LABS: BASOPHILS % (AUTO) 0.3 % (0.0-2.0); EOSINOPHILS % (AUTO) 0.3 % (0.0-6.0); HEMATOCRIT 35 % (33-45); HEMOGLOBIN 11.5 g/dL (11.5-14.8); LYMPHOCYTES # (AUTO) 1.4 K/uL (0.8-4.8); LYMPHOCYTES % (AUTO) 8.5 % (20.0-44.0); MEAN CORPUSCULAR HGB CONC 33 g/dl (31.0-36.0); MEAN CORPUSCULAR VOLUME 99 fL (82-100); MONOCYTES # (AUTO) 0.9 K/uL (0.1-1.30); MONOCYTES % (AUTO) 5.6 % (2.0-12.0); NEUTROPHILS # (AUTO) 14.1 K/uL (1.8-8.9); NEUTROPHILS % (AUTO) 85.3 % (43.0-81.0); PLATELET COUNT (AUTO) 290 K/uL (150-450); RED BLOOD CELL COUNT(AUTO) 3.53 MIL/uL (4.0-5.2); WHITE BLOOD COUNT (AUTO) 16.5 K/uL (4.3-11.0)
[2023-01-07 07:27] LABS: CALCIUM, SERUM 8.4 mg/dL (8.5-10.1); CARBON DIOXIDE 25 mmol/L (21-32); CHLORIDE 104 mmol/L (98-107); CREATININE 0.9 mg/dL (0.6-1.3); GLUCOSE 88 mg/dL (74-106); PHOSPHORUS 2.7 mg/dL (2.5-4.9); POTASSIUM 3.9 mmol/L (3.5-5.1); SODIUM SERUM 137 mmol/L (136-145); UREA NITROGEN, BLOOD 12 mg/dL (7-18)
[2023-01-07 07:37] LABS: CHOLESTEROL 155 mg/dL (<200); HDL CHOLESTEROL 73 mg/dL (40-60); LDL 83 mg/dL (0-99); TRIGLYCERIDES 29 mg/dL (30-150)
[2023-01-07 08:00] VITALS: BP 117/60
--- NOTE | 2023-01-07 10:30 | NUR ---
PATIENT DID NOT PASSED THE SWALLOW EVAL. SPEECH THERAPIST SAID PATIENT WILL REMAIN NPO
[2023-01-07] MEDS: IV NS 0.9% 1,000 ML IV PRN (11:25)
[2023-01-07 12:00] VITALS: BP 114/60
[2023-01-07] MEDS ORDERED: SENN-261 PO (14:36)
[2023-01-07 16:00] VITALS: BP 125/60
--- NOTE | 2023-01-07 17:30 | NUR ---
@1600 PATIENT REMOVED HER IV SITE AND TRIED TO GET OUT OF THE BED, A NEW IV SITE APPLIED ON PATIENTS RIGHT FOREARM. AND AGAIN PATIENT TRIED TO GET OUT OF THE BED, PATIENT IS A/O X 2 CONFUSED AT TIMES. SOFT WRIST BILATERALLY RESTRAIN ORDERED BY DOCTOR RYAN.
--- NOTE | 2023-01-07 19:40 | NUR ---
RN OPENING NOTES: RECEIVED PATIENT IN BED, SLEEPING BUT AROUSABLE, A/O X1, RESPONSIVE TO PAINFUL STIMULI. ON ROOM AIR AND PT TOLERATED WELL. IV ACCESS ON RFA#20G INTACT AND PATENT. NO S/S OF INFILTRATIONS. NO FACIAL GRIMACING NOTED. NO ACUTE DISTRESS. BILATERAL SOFT RESTRAINTS ON. ALL SAFETY MEASURES IN PLACE, BED IN LOWEST POSITION AND LOCKED. SIDE RAILS UP X2, PLACE CALL LIGHT WITHIN REACH. WILL CONTINUE TO MONITOR
[2023-01-07 20:00] VITALS: BP 122/62
[2023-01-08] VITALS: BP 115/74
[2023-01-08] MEDS: IV NS 0.9% 1,000 ML IV PRN (01:06)
[2023-01-08 04:00] VITALS: BP 128/72
[2023-01-08 06:27] LABS: BASOPHILS # (AUTO) 0.1 K/uL (0.0-0.2); HEMATOCRIT 36 % (33-45); LYMPHOCYTES # (AUTO) 1.7 K/uL (0.8-4.8); LYMPHOCYTES % (AUTO) 17.9 % (20.0-44.0); MEAN CORPUSCULAR HGB CONC 34 g/dl (31.0-36.0); MEAN CORPUSCULAR VOLUME 97 fL (82-100); MONOCYTES # (AUTO) 0.6 K/uL (0.1-1.30); MONOCYTES % (AUTO) 6.7 % (2.0-12.0); NEUTROPHILS # (AUTO) 6.8 K/uL (1.8-8.9); NEUTROPHILS % (AUTO) 72.4 % (43.0-81.0); PLATELET COUNT (AUTO) 282 K/uL (150-450); RED BLOOD CELL COUNT(AUTO) 3.66 MIL/uL (4.0-5.2); WHITE BLOOD COUNT (AUTO) 9.4 K/uL (4.3-11.0)
--- NOTE | 2023-01-08 06:36 | NUR ---
RN CLOSING NOTES: PATIENT IN BED, SLEEPING BUT AROUSABLE, A/O X1, RESPONSIVE TO PAINFUL STIMULI. ON ROOM AIR AND PT TOLERATED WELL. IV ACCESS ON RFA#20G INTACT AND PATENT. NO S/S OF INFILTRATIONS. NO FACIAL GRIMACING NOTED. NO ACUTE DISTRESS. BILATERAL SOFT RESTRAINTS ON. RELEASED Q 2HOURS TO CHECK CIRCULATION. IV HYDRATION GIVEN ORDERED. ON [place], DRAINING BY GRAVITY. NOTED CLEAR/YELLOWISH URINE. ALL SAFETY MEASURES IN PLACE, BED IN LOWEST POSITION AND LOCKED. SIDE RAILS UP X2, PLACE CALL LIGHT WITHIN REACH. WILL ENDORSE TO MORNING SHIFT NURSE.
[2023-01-08 06:50] LABS: CALCIUM, SERUM 8.6 mg/dL (8.5-10.1); CARBON DIOXIDE 28 mmol/L (21-32); CHLORIDE 105 mmol/L (98-107); CREATININE 0.7 mg/dL (0.6-1.3); GLUCOSE 73 mg/dL (74-106); MAGNESIUM 1.9 mg/dL (1.8-2.4); PHOSPHORUS 2.9 mg/dL (2.5-4.9); POTASSIUM 3.7 mmol/L (3.5-5.1); SODIUM SERUM 138 mmol/L (136-145); UREA NITROGEN, BLOOD 7 mg/dL (7-18)
[2023-01-08 08:00] VITALS: BP 121/82
[2023-01-08 12:00] VITALS: BP 157/77
[2023-01-08 16:00] VITALS: BP_SYST 132; BP_SYST 154; BP_DIAS 65; BP_DIAS 76
--- NOTE | 2023-01-08 16:45 | NUR ---
PATIENT DISCHARGED PATIENT LEFT VIA GURNEY TO THE BOARD OF CARE ON ROOM AIR, STABLE, NO SOB, NO DISTRESS. ALL DISCHARGE PAPER GIVEN TO THE AMBULANCE STAFF TO HANDLE IT TO THE BOARD OF CARE BE WELL SKILLED NURSING. IV SITE RIGHT FOREARM REMOVED AND SECURED BEFORE PATIENT LEAVES.
== END 2023-01-08 16:45 | disposition home health service (06) | DRG 682 ==
LOC: ER 11:58 → MEDSG1 16:38 → TELE1 17:17
PROVIDERS: ADMIT Nurse Practitioner Acute Care; ATTEND Nurse Practitioner Acute Care
DX: N17.9 Acute kidney failure, unspecified (principal); G93.41 Metabolic encephalopathy; E87.6 Hypokalemia; G30.9 Alzheimer's disease, unspecified; F02.80 Dementia in other diseases classified elsewhere, unspecified severity, without behavioral disturbance, psychotic disturbance, mood disturbance, and anxiety; I10 Essential (primary) hypertension; Z79.811 Long term (current) use of aromatase inhibitors; Z86.73 Personal history of transient ischemic attack (TIA), and cerebral infarction without residual deficits; Z79.899 Other long term (current) drug therapy; R79.89 Other specified abnormal findings of blood chemistry; Z20.822 Contact with and (suspected) exposure to COVID-19
CPT/HCPCS: 36415; 70450-TC; 71045-TC; 80048-TC; 80061-TC; 80076-TC; 83605-TC; 83735-TC; 84100-TC; 84484-TC; 85025-TC; 85730-TC; 87040-TC; 87081-TC; 92526; 92611-TC; A4223; C9803; G0378; J3480; J7030; J7040

== ENCOUNTER 2023-05-04 08:56 | Emergency (ER) | payer MEDICARE ==
[~2023-05-04] VITALS: Ht 167.6 cm; Wt 56.2 kg
[~2023-05-04 08:56] MED LIST changes: -ENAL10TA39 PO; +SENN-261 PO; -TRAM50TA2 PO
[2023-05-04 10:32] LABS: INR 0.98 (0.91-1.10); PARTIAL THROMBOPLASTIN TIME 24.8 SEC (24.3-34.3); PROTHROMBIN TIME 10.3 SECS (9.2-11.1)
[2023-05-04 10:34] LABS: CARBON DIOXIDE 25 mmol/L (21-32); CHLORIDE 100 mmol/L (98-107); CREATININE 0.8 mg/dL (0.6-1.3); GLUCOSE 138 mg/dL (74-106); SODIUM SERUM 135 mmol/L (136-145); UREA NITROGEN, BLOOD 13 mg/dL (7-18)
[2023-05-04 10:41] LABS: SERUM AMMONIA < 10 umol/L (11-32)
[2023-05-04 10:49] LABS: HEMATOCRIT 38 % (33-45)
[2023-05-04 10:52] LABS: ALANINE AMINOTRANSFERASE 18 U/L (12-78); ALBUMIN 3.3 g/dL (3.4-5.0); ALKALINE PHOSPHATASE 68 U/L (46-116); ASPARTATE AMINOTRANSFERASE 17 U/L (15-37); BASOPHILS # (AUTO) 0.1 K/uL (0.0-0.2); BASOPHILS % (AUTO) 1.3 % (0.0-2.0); BILIRUBIN,DIRECT 0.2 mg/dL (0.0-0.2); BILIRUBIN,TOTAL 0.8 mg/dL (0.2-1.0); EOSINOPHILS # (AUTO) 0.1 K/uL (0.0-0.7); EOSINOPHILS % (AUTO) 1.7 % (0.0-6.0); LYMPHOCYTES # (AUTO) 1.1 K/uL (0.8-4.8); LYMPHOCYTES % (AUTO) 26.9 % (20.0-44.0); MEAN CORPUSCULAR HEMOGLOBIN 33 PG (26.0-33.0); MEAN CORPUSCULAR HGB CONC 34 g/dl (31.0-36.0); MEAN CORPUSCULAR VOLUME 98 fL (82-100); MONOCYTES # (AUTO) 0.4 K/uL (0.1-1.30); MONOCYTES % (AUTO) 8.8 % (2.0-12.0); NEUTROPHILS # (AUTO) 2.6 K/uL (1.8-8.9); NEUTROPHILS % (AUTO) 61.3 % (43.0-81.0); PLATELET COUNT (AUTO) 314 K/uL (150-450); RED CELL DISTRIBUTION WIDTH 13.4 % (11.5-15.0); TOTAL PROTEIN, SERUM 6.9 g/dL (6.4-8.2); WHITE BLOOD COUNT (AUTO) 4.2 K/uL (4.3-11.0)
[2023-05-04 10:56] LABS: ACETAMINOPHEN <10 ug/ml (10-30); ALCOHOL, BLOOD < 3 mg/dL (0-10); SALICYLATE < 2.3 mg/dL (2.8-20.0)
[2023-05-04 11:05] LABS: MAGNESIUM 2.4 mg/dL (1.8-2.4); THYROID STIMULATING HORMONE 2.257 uIU/mL (0.358-3.74)
[2023-05-04 11:13] LABS: AMPHETAMINE, URINE NEGATIVE (NEGATIVE); BARBITURATE, URINE NEGATIVE (NEGATIVE); BENZODIAZEPINE, URINE NEGATIVE (NEGATIVE); CANNABINOID, URINE NEGATIVE (NEGATIVE); COCCAINE, URINE NEGATIVE (NEGATIVE); OPIATE, URINE NEGATIVE (NEGATIVE); PHENCYCLIDINE SCREEN,URINE NEGATIVE (NEGATIVE)
[2023-05-04 11:30] LABS: APPEARANCE,URINE CLEAR (CLEAR); BILIRUBIN,URINE NEGATIVE (NEGATIVE); BLOOD, URINE NEGATIVE Ery/uL (NEGATIVE); COLOR,URINE YELLOW (YELLOW); KETONES,URINE TRACE mg/dL (NEGATIVE); LEUKOCYTE ESTERASE ,URINE NEGATIVE (NEGATIVE); NITRITE, URINE NEGATIVE (NEGATIVE); PH,URINE 6.5 (5.0-8.0); PROTEIN,URINE NEGATIVE (NEGATIVE); UGLUCOSE NEGATIVE (NEGATIVE); UROBILINOGEN,URINE 0.2 EU/dL (0.2)
[2023-05-04 13:56] VITALS: BP 123/72; TEMP 98.3; O2SAT 97
== END 2023-05-04 13:57 | disposition home health service (06) ==
LOC: ER 08:58
DX: R41.82 Altered mental status, unspecified (principal); I10 Essential (primary) hypertension; G30.9 Alzheimer's disease, unspecified; F02.80 Dementia in other diseases classified elsewhere, unspecified severity, without behavioral disturbance, psychotic disturbance, mood disturbance, and anxiety
CPT/HCPCS: 36415; 70450-TC; 71045-TC; 80048-TC; 80076-TC; 82140-TC; 82962-TC; 83735-TC; 83880; 84443-TC; 84484-TC; 85025-TC; 85730-TC; G0480